=== PATIENT | male | born 1995 | race African-American/Black ===

== ENCOUNTER 2024-05-17 04:00 | Emergency (ER) | payer MEDICAID, OTHER ==
[~2024-05-17] VITALS: Ht 193 cm; Wt 150.0 kg
--- NOTE | 2024-05-17 04:44 | ED.PDOC ---
Eye-HPI HPI Comments This is a 28-year-old male patient presents to the ED with bilateral eye r edness. Patient states symptoms started around 1 day ago, has been taking [id number] eyedrops with little relief. He reports yellowish discharge with crusting in the morning. He notes no eye pain but does complain of severe eye itchiness. Denies fevers, chills, changes in vision, nausea or vomiting. Denies any trauma or known foreign body. Chief Complaint: Eye Problem Time Seen by MD: 04:11 Reviewed Notes: Nurses Notes, Aircraft Life Support Fitter Notes, Medications, Allergies Allergies: Uncoded Allergies: SHELLFISH (Allergy, Unknown, 05/17/24) Information Source: Patient Mode of Arrival: Ambulatory Past Medical History PAST MEDICAL HISTORY: Denies Surgical History: Denies all surgeries Family History Family History: Reviewed,noncontributory to illness, No family hx of Cancer, No family hx of DM, No family hx of Heart brannon, No family hx of HTN, No family hx ofKidney brannon, No family hx of Liver brannon, No family hx of Lung brannon, No family hx of Stroke Social History Smoker: Non-Smoker Alcohol: Denies ETOH Use Drugs: Denies Drug Use Constitutional: denies: chills, diaphoresis, fatigue, fever, malaise, sweats, weakness, others EENTM: reports: eye redness; denies: blurred vision, double vision, ear bleeding, ear discharge, ear drainage, ear pain, ear ringing, eye pain, hearing loss, mouth pain, mouth swelling, nasal discharge, nose bleeding, nose congestion, nose pain, photophobia, tearing, throat pain, throat swelling, voice changes, others Respiratory: denies: cough, hemoptysis, orthopnea, SOB at rest, shortness of breath, SOB with excertion, stridor, wheezing, others Cardiovascular: denies: chest pain, dizzy spells, diaphoresis, Dyspnea on exertion, edema, irregular heart beat, left arm pain, lightheadedness, palpitations, PND, syncope, others Gastrointestinal: denies: abdomen distended, abdominal pain, blood streaked bowels, constipated, diarrhea, dysphagia, difficulty swallowing, hematemesis, melena, nausea, poor appetite, poor fluid intake, rectal bleeding, rectal pain, vomiting, others Genitourinary: denies: burning, dysuria, flank pain, frequency, hematuria, incontinence, penile discharge, penile sore, pain, testicle pain, testicle swelling, urgency, others Neurological: denies: dizziness, fainting, headache, left sided numbness, left sided weakness, numbness, paresthesia, pre-existing deficit, right sided numbness, right sided weakness, seizure, speech problems, tingling, tremors, weakness, others Musculoskeletal: denies: back pain, gout, joint pain, joint swelling, muscle pain, muscle stiffness, neck pain, others Integumetry: denies: bruises, change in color, change in hair/nails, dryness, laceration, lesions, lumps, rash, wounds, others Allergic/Immunocompromised: denies: Difficulty Healing, Frequent Infections, Hives, Itching, others Hematologic/Lymphatic: denies: anemia, blood clots, easy bleeding, easy bruising, swollen glands, others Endocrine: denies: excessive hunger, excessive sweating, excessive thirst, excessive urination, flushing, intolerance to cold, intolerance to heat, unexplained weight gain, unexplained weight loss, others Psychiatric: denies: anxiety, bipolar disorder, depression, hopeless, panic disorder, schizophrenia, sleepless, suicidal, others Physical Exam General Appearance: No Apparent Distress, Normal HEENT: Pharynx Normal, TMs Normal, Other (Bilateral conjunctival hyperemia with noted yellow discharge. Vision bilateral 2020. Yellowish drainage noted bilateral.) Neck: Full Range of Motion, Non-Tender, Normal, Normal Inspection Respiratory: Chest Non-Tender, Lungs Clear, No Accessory Muscle Use, No Respiratory Distress, Normal Breath Sounds Cardiovascular: No Edema, No JVD, No Murmur, No Gallop, Normal Peripheral Pulses, Regular Rate/Rhythm Breast Exam: Deferred Gastrointestinal: No Organomegaly, Non Tender, No Pulsatile Mass, Normal Bowel Sounds, Soft Genitalia: Deferred Pelvic: Deferred Rectal: Deferred Extremities: No calf tenderness, Normal capillary refill, Normal inspection, Normal range of motion, Non-tender, No pedal edema Musculoskeletal : Apperance: Normal Neurologic: Alert, 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 Was a procedure done?: No EENT DIFF Eye: Conjunctivitis, Foreign Body-Conjunctiva X-Ray, Labs, Meds, VS Vital Signs Date Time Temp Pulse Resp B/P (MAP) Pulse Ox O2 Delivery O2 Flow Rate FiO2 05/17/24 04:13 97.9 90 16 145/94 (111) 97 X-Ray, Labs, Meds, VS Comment Likely bacterial. This is a. Cjfc-cpp-dizccvt drops start trial of antibiotic drops follow up with his PCP in 2-3 days as necessary. Advised to wash his pillowcase towards end of treatment advised to avoid scratching his eyes. Advised to follow back up in the ER for increasing symptoms, fevers, chills or changes in vision. Patient agrees with discharge plan of care. Time of 1ST Reevaluation: 04:51 Reevaluation 1ST: Unchanged Patient Education/Counseling: Diagnosis, Treatment, Prognosis, Need For Follow Up Family Education/Counseling: No Family Present Departure 1 Departure Time of Disposition: 04:56 Impression: Primary Impression: Acute conjunctivitis, bilateral Qualified Codes: H10.33 - Unspecified acute conjunctivitis, bilateral Disposition: 01 HOME / SELF CARE / HOMELESS Condition: Stable e-Prescriptions Moxifloxacin Hydrochloride (Moxifloxacin HCl) 0.5 % Jessi 1 DROP OP TID for 7 Days, #4 ML Instill 1 drop 3 times a day in both eyes x7 days Prov: YESENIA JADE 05/17/24 Discharged With: Self Critical Care Note Critical Care Time?: No Stability Stability form required: YESENIA Bruno May 17, 2024 04:44
[2024-05-17] MEDS ORDERED: MOXI0.5S3 OP (04:56)
[2024-05-17 04:58] VITALS: BP 135/91; PULSE 97; RESP 19; TEMP 97.9; O2SAT 95
== END 2024-05-17 05:17 | disposition home or self-care (01) ==
LOC: ER 04:00
DX: H10.33 Unspecified acute conjunctivitis, bilateral (principal)

== ENCOUNTER 2024-07-29 11:29 | Inpatient (IN) | payer MEDICAID ==
[~2024-07-29] VITALS: Ht 195.6 cm; Wt 142.5 kg
--- NOTE | 2024-07-29 12:08 | ED.PDOC ---
SOB-HPI HPI Comments 28 y/o M with PMHX of Asthma presents to the ED for CC of shortness of breath. Patient states, that he has been experiencing shortness of breath x2days with associated wheezing. Patient relays, that he has been unable to do daily activities due to continuously being out of breath. Patient comments of using his inhaler at home; provided no relief. Patient denies fever, chills, nasal congestion, or N/V/D. Chief Complaint: Shortness of Breath Time Seen by MD: 12:00 Reviewed notes: Nurses Notes, Medications, Allergies Information Source: Patient Mode of Arrival: Ambulatory Severity: Moderate Timing: Days Duration: Since onset Context: At Rest, With Light Exertion PE Risk Factors: None History of: Asthma Prehospital treatment: None Modifying Factors: Nothing Associated Signs and Symptoms: Wheeze Past Medical History PAST MEDICAL HISTORY: Denies Surgical History: Denies all surgeries Family History Family History: Reviewed,noncontributory to illness, No family hx of Cancer, No family hx of DM, No family hx of Heart brannon, No family hx of HTN, No family hx ofKidney brannon, No family hx of Liver brannon, No family hx of Lung brannon, No family hx of Stroke Social History Smoker: Non-Smoker Alcohol: Denies ETOH Use Drugs: Denies Drug Use Constitutional: denies: chills, diaphoresis, fatigue, fever, malaise, sweats, weakness, others EENTM: denies: blurred vision, double vision, ear bleeding, ear discharge, ear drainage, ear pain, ear ringing, eye pain, eye redness, hearing loss, mouth pain, mouth swelling, nasal discharge, nose bleeding, nose congestion, nose pain, photophobia, tearing, throat pain, throat swelling, voice changes, others Respiratory: reports: shortness of breath; denies: cough, hemoptysis, orthopnea, SOB at rest, SOB with excertion, stridor, wheezing, others Cardiovascular: denies: chest pain, dizzy spells, diaphoresis, Dyspnea on exertion, edema, irregular heart beat, left arm pain, lightheadedness, palpitations, PND, syncope, others Gastrointestinal: denies: abdomen distended, abdominal pain, blood streaked bowels, constipated, diarrhea, dysphagia, difficulty swallowing, hematemesis, melena, nausea, poor appetite, poor fluid intake, rectal bleeding, rectal pain, vomiting, others Genitourinary: denies: burning, dysuria, flank pain, frequency, hematuria, incontinence, penile discharge, penile sore, pain, testicle pain, testicle swelling, urgency, others Neurological: denies: dizziness, fainting, headache, left sided numbness, left sided weakness, numbness, paresthesia, pre-existing deficit, right sided numbness, right sided weakness, seizure, speech problems, tingling, tremors, weakness, others Musculoskeletal: denies: back pain, gout, joint pain, joint swelling, muscle pain, muscle stiffness, neck pain, others Integumetry: denies: bruises, change in color, change in hair/nails, dryness, laceration, lesions, lumps, rash, wounds, others Allergic/Immunocompromised: denies: Difficulty Healing, Frequent Infections, H vineet, Itching, others Hematologic/Lymphatic: denies: anemia, blood clots, easy bleeding, easy bruising, swollen glands, others Endocrine: denies: excessive hunger, excessive sweating, excessive thirst, excessive urination, flushing, intolerance to cold, intolerance to heat, unexplained weight gain, unexplained weight loss, others Psychiatric: denies: anxiety, bipolar disorder, depression, hopeless, panic disorder, schizophrenia, sleepless, suicidal, others All Other Systems: Reviewed and Negative Physical Exam General Appearance: Moderate Distress HEENT: Normal ENT Inspection, Pharynx Normal, TMs Normal Neck: Full Range of Motion, Non-Tender, Normal, Normal Inspection Respiratory: Respiratory Distress, Wheezing Cardiovascular: No Edema, No JVD, No Murmur, No Gallop, Normal Peripheral Pulses, Regular Rate/Rhythm Breast Exam: Deferred Gastrointestinal: No Organomegaly, Non Tender, No Pulsatile Mass, Normal Bowel Sounds, Soft Genitalia: Deferred Pelvic: Deferred Rectal: Deferred Extremities: No calf tenderness, Normal capillary refill, Normal inspection, Normal range of motion, Non-tender, No pedal edema Musculoskeletal : Apperance: Normal Neurologic: Alert, 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 Was a procedure done?: No Differential Dx Differential Diagnosis: Anxiety, Asthma, Bronchitis, CHF, COPD, Pneumonia, URI X-Ray, Labs, Meds, VS Vital Signs Date Time Temp Pulse Resp B/P (MAP) Pulse Ox O2 Delivery O2 Flow Rate FiO2 07/29/24 12:28 18 96 Nasal Cannula* 2 28 07/29/24 12:05 Nasal Cannula* 2 28 07/29/24 11:56 96 07/29/24 11:48 24 96 Nasal Cannula* 2 28 07/29/24 11:48 99.4 110 24 137/97 (110) 91 Current Medications Medications (Trade) Dose Ordered Sig/Virginie Route Start Time Stop Time Status Last Admin Methylprednisolone Sodium Succinate (Solu Medrol) 125 mg ONCE ONCE IV 07/29/24 12:15 07/29/24 12:16 DC 07/29/24 12:21 Albuterol (Ventolin Medneb) 5 mg ONCE ONCE NEB 07/29/24 12:15 07/29/24 12:16 DC 07/29/24 12:28 Ipratropium [place] (Atrovent Medneb) 0.5 mg ONCE ONCE NEB 07/29/24 12:15 07/29/24 12:16 DC 07/29/24 12:28 [place] [id number] Ph: [phone] DIAGNOSTIC IMAGING Diagnostic Imaging Report : [id number] Signed PATIENT: ASHLEY ALANIZ ACCT: [id number] UNIT: [id number] : 1995 LOC: ER ROOM / BED: / AGE / SEX: 28 / M ADM STATUS: REG ER SERVICE 1144 ORDERING PHYSICIAN: JASMYN RANDOLPH MD PROCEDURE(s): CXRP - CHEST PORTABLE REASON: sob ORDER NUMBER(s): [id number], ACCESSION NUMBER(s): [id number] CHEST RADIOGRAPH Indication: sob Technique: Single frontal view of the chest was obtained COMPARISON: None FINDINGS: Lines and Tubes: None Lungs: Clear Pleura: No effusion. No pneumothorax. Cardiomediastinal contours: Unremarkable Bones: Unremarkable IMPRESSION: No acute disease. ATED BY: ALVARO SHAY MD DICTATED DATE/TIME: 07/29/24 1212 SIGNED BY: ALVARO SHAY MD SIGNED DATE/TIME: 07/29/24 1212 CC: Patient alert. Complaining of shortness a breath. History of asthma. Placed on oxygen. Has wheezing. Establish intravenous access. Was given steroid. Was given breathing treatment. Possible pneumonitis. Explained to the patient. Continue cardiac monitoring. Time of 1ST Reevaluation: 12:30 Reevaluation 1ST: Unchanged Patient Education/Counseling: Diagnosis, Treatment Family Education/Counseling: No Family Present Departure 1 Departure Time of Disposition: 12:26 Impression: Primary Impression: Acute respiratory failure Qualified Codes: J96.01 - Acute respiratory failure with hypoxia Additional Impression: Pneumonitis Disposition: ADMITTED INPATIENT Admit to: Med Surg Condition: Guarded Critical Care Note Critical Care Time?: Yes (45 min-critical care time only) Critical care comment: Placed on oxygen Stability Stability form required: No Heart Score Heart Score: Heart Score Response (Comments) Value History N/A 0 EKG N/A 0 Age N/A 0 Risk Factors N/A 0 Troponin N/A 0 Total 0 I personally scribed for JASMYN RANDOLPH MD ([email or web address]) on 07/29/24 at 12:08. Electronically submitted by Jaclyn Blackwood ([email or web address]). I personally scribed for JASMYN RANDOLPH MD ([email or web address]) on 07/29/24 at 12:59. Electronically submitted by Jaclyn Blackwood ([email or web address]). JASMYN RANDOLPH MD Jul 29, 2024 12:08
--- NOTE | 2024-07-29 12:14 | DVH ---
CHEST RADIOGRAPH Indication: sob Technique: Single frontal view of the chest was obtained COMPARISON: None FINDINGS: Lines and Tubes: None Lungs: Clear Pleura: No effusion. No pneumothorax. Cardiomediastinal contours: Unremarkable Bones: Unremarkable IMPRESSION: No acute disease.
[2024-07-29] MEDS: methylPREDNISolone SOD SUCC 125 MG/2 ML VL IV ONE (12:21)
[2024-07-29 12:28] VITALS: PULSE 94; RESP 18; O2SAT 95
[2024-07-29] MEDS: ALBUTEROL SULF 2.5 MG/0.5ML(0.5%) NEB SOLN NEB ONE (12:28)
[2024-07-29] MEDS: IPRATROPIUM BROM 0.5 MG/2.5ML INH SOL NEB ONE (12:28)
[2024-07-29] MEDS ORDERED: ACETAMINOPHEN 325 MG TAB PO PRN (13:00)
[2024-07-29] MEDS ORDERED: HYDROcodone-ACET 5/325MG TAB PO PRN (13:00)
[2024-07-29] MEDS ORDERED: ONDANSETRON HCL 4 MG/2 ML VIAL IV PRN (13:00)
[2024-07-29] MEDS ORDERED: IPRATROPIUM BROM 0.5 MG/2.5ML INH SOL NEB PRN (13:00)
[2024-07-29] MEDS ORDERED: DOCUSATE SOD 100 MG CAP PO PRN (13:00)
[2024-07-29] MEDS ORDERED: ALBUTEROL SULF 2.5 MG/0.5ML(0.5%) NEB SOLN NEB PRN (13:00)
[2024-07-29 13:07] LABS: Basophils # (auto) 0.1 10 ^3/uL (0-0.2); Basophils % (auto) 0.9 % (0.0-2.0); Eosinophils # (auto) 0.7 10 ^3/uL (0-0.8); Eosinophils % (auto) 6.9 % (0.0-7.0); Hematocrit 43.9 % (41.0-53.0); Hemoglobin 14.8 g/dL (13.5-17.5); Lymphocytes # (auto) 2.2 10 ^3/uL (0.4-5.4); Lymphocytes % (auto) 21.3 % (10.0-50.0); Mean Corpuscular Hemoglobin 31.4 pg (28.0-32.0); Mean Corpuscular Hgb Conc. 33.6 g/dL (32.0-36.0); Mean Corpuscular Volume 93.3 fL (80.0-100.0); Monocytes # (auto) 0.7 10 ^3/uL (0-1.3); Monocytes % (auto) 6.5 % (0.0-12.0); Neutrophils # (auto) 6.6 10 ^3/uL (1.6-8.6); Neutrophils % (auto) 64.4 % (37.0-80.0); Platelet Count (auto) 350 10^3/uL (140-450); White Blood Cell 10.2 10^3/uL (4.4-10.8)
[2024-07-29 13:18] LABS: Chloride 104 mmol/L (98-107); Potassium 3.8 mmol/L (3.5-5.1); Sodium 139 mmol/L (136-145)
[2024-07-29 13:19] LABS: Anion Gap 7 (5-15); Carbon Dioxide 28 mmol/L (20-31)
[2024-07-29 13:24] LABS: BUN/Creatinine Ratio 5.7 (10.0-20.0); Glucose 103 mg/dL (74-106)
[2024-07-29 13:25] LABS: Blood Urea Nitrogen 7 mg/dL (9-23)
[2024-07-29] MEDS: methylPREDNISolone SOD SUCC 40 MG/ML VL IV SCH (13:29)
[2024-07-29] MEDS: SODIUM CHLORIDE 0.9% 1,000 ML IV SCH (13:29)
[2024-07-29 13:33] VITALS: PULSE 91; RESP 20; O2SAT 95
--- NOTE | 2024-07-29 14:29 | DVHHP2 ---
History of Present Illness Reason for Visit: Acute respiratory failure History of Present Illness The patient is a 28-year-old male who denies past medical history presented to [facility] ED with complaint of shortness of breaths. Patient reports he has been experiencing shortness of breaths for the past 2 days, a ssociated wheezing, SOB at rest, getting worse today that prompted this visit. Patient was seen and evaluated in the ED, laboratory data shows WBC 10.2, platelets 350, sodium 139, potassium 3.8, BUN 7, creatinine 1.22, GFR 83, glucose 103, blood pressure 137/97, heart rate 96, temperature 99.4 F, O2 saturation 96% on oxygen. Chest x-ray reporting no acute disease. Patient was given breathing treatment, please see medication orders section in the computer. On my assessment, patient denied chest pain, no headache, no dizziness, no diaphoresis, currently on oxygen, no nausea, no vomiting, no fever, no chills. Patient was admitted for further evaluation and medical management. Past Medical History Denies past medical history Past Surgical History Denies all surgeries Family History Reviewed, noncontributory to the management of this case. Past Social History The patient lives at home, denies smoking, alcohol or illicit drugs abuse. Review of Systems Constitutional: No: Fever, Chills, Sweats, Weakness, Malaise, Other Eyes: No: Pain, Vision change, Conjunctivae inflammation, Eyelid inflammation, Other, Redness ENT: No: Ear pain, Ear discharge, Nose pain, Nose discharge, Nose congestion, Mouth pain, Mouth swelling, Throat pain, Throat swelling, Other Respiratory: Shortness of breath, Wheezing, Other (SOB at rest); No: Cough, Dry, SOB with excertion, Hemoptysis, Pleuritic Pain, Sputum, Wheezing Cardiovascular: No: Chest Pain, Palpitations, Orthopnea, Paroxysmal Noc. Dyspnea, Edema, Lt Headedness, Other Gastrointestinal: No: Nausea, Vomiting, Abdominal Pain, Diarrhea, Constipation, Melena, Hematochezia, Other Genitourinary: No Dysuria, No Frequency, No Incontinence, No Hematuria, No Retention, No Other Musculoskeletal: No: other, neck pain, shoulder pain, arm pain, back pain, hand pain, leg pain, foot pain Skin: No: Rash, Lesions, Jaundice, Bruising, Other Neurological: No: Weakness, Numbness, Incoordination, Change in speech, Confusion, Seizures, Other Allergies: Uncoded Allergies: SHELLFISH (Allergy, Unknown, 05/17/24) Medications Current Medications Medications Dose Ordered Sig/Virginie Route Start Time Stop Time Status Last Admin Dose Admin Albuterol 2.5 mg Q4HPRN PRN NEB 07/29/24 13:00 Ipratropium [place] 0.5 mg Q4HPRN PRN NEB 07/29/24 13:00 Methylprednisolone Sodium Succinate 40 mg Q8HR IV 07/29/24 14:00 07/29/24 13:29 40 MG Sodium Chloride 1,000 ml @ 60 mls/hr [id number] IV 07/29/24 13:00 07/29/24 13:29 60 MLS/HR Acetaminophen/ Hydrocodone Bitart 1 tab Q4HP PRN PO 07/29/24 13:00 Ondansetron HCl 4 mg Q4HP PRN IV 07/29/24 13:00 Docusate Sodium 100 mg BIDPRN PRN PO 07/29/24 13:00 Acetaminophen 650 mg Q6HP PRN PO 07/29/24 13:00 Exam Vital Signs Vital Signs Date Time Temp Pulse Resp B/P (MAP) Pulse Ox O2 Delivery O2 Flow Rate FiO2 07/29/24 14:00 83 18 150/97 (114) 94 07/29/24 13:33 99.4 99.4 07/29/24 13:33 Room Air* 0 21 General Appearance: Alert, Oriented X3, Cooperative, No acute distress HEENT: Atraumatic, PERRLA, EOMI, Mucous membr. moist/pink Respiratory: Normal air movement, Other (Wheezing) Cardiovascular: Regular rate, Normal S1, Normal S2 Abdominal: Normal bowel sounds, Soft, No tenderness, No hepatospenomegaly, No masses Extremities: No clubbing, No cyanosis, No edema, Normal pulses, No tenderness/swelling Skin: No rashes, No breakdown, No significant lesion Neuro: Normal gait, Normal speech, Strength at 5/5 X4 ext, Normal tone, Sensation intact, Cranial nerves 3-12 NL, Reflexes 2+ Psych/Mental Status: Mental status NL, Mood NL Labs/Xrays Labs Test 07/29/24 12:56 Range/Units White Blood Count 10.2 4.4-10.8 10^3/uL Red Blood Count 4.70 4.5-5.90 10^6/uL Hemoglobin 14.8 13.5-17.5 g/dL Hematocrit 43.9 41.0-53.0 % Mean Corpuscular Volume 93.3 80.0-100.0 fL Mean Corpuscular Hemoglobin 31.4 28.0-32.0 pg Mean Corpuscular Hemoglobin Concent 33.6 32.0-36.0 g/dL Red Cell Distribution Width 13.0 11.8-14.3 % Platelet Count 350 140-450 10^3/uL Mean Platelet Volume 7.7 6.9-10.8 fL Neutrophils (%) (Auto) 64.4 37.0-80.0 % Lymphocytes (%) (Auto) 21.3 10.0-50.0 % Monocytes (%) (Auto) 6.5 0.0-12.0 % Eosinophils (%) (Auto) 6.9 0.0-7.0 % Basophils (%) (Auto) 0.9 0.0-2.0 % Neutrophils # (Auto) 6.6 1.6-8.6 10 ^3/uL Lymphocytes # (Auto) 2.2 0.4-5.4 10 ^3/uL Monocytes # (Auto) 0.7 0-1.3 10 ^3/uL Eosinophils # (Auto) 0.7 0-0.8 10 ^3/uL Basophils # (Auto) 0.1 0-0.2 10 ^3/uL Nucleated Red Blood Cells 0.0 % Sodium Level 139 136-145 mmol/L Potassium Level 3.8 3.5-5.1 mmol/L Chloride Level 104 98-107 mmol/L Carbon Dioxide Level 28 20-31 mmol/L Anion Gap 7 5-15 Blood Urea Nitrogen 7 L 9-23 mg/dL Creatinine 1.22 0.700-1.30 mg/dL Glomerular Filtration Rate Calc 83 >90 mL/min BUN/Creatinine Ratio 5.7 L 10.0-20.0 Serum Glucose 103 74-106 mg/dL Calcium Level 10.0 8.7-10.4 mg/dL PATIENT: ASHLEY ALANIZ ACCT: [id number] UNIT: [id number] : 1995 LOC: ER ROOM / BED: / AGE / SEX: 28 / M ADM STATUS: REG ER SERVICE 1144 ORDERING PHYSICIAN: JASMYN RANDOLPH MD PROCEDURE(s): CXRP - CHEST PORTABLE REASON: sob ORDER NUMBER(s): [id number], ACCESSION NUMBER(s): [id number] CHEST RADIOGRAPH Indication: sob Technique: Single frontal view of the chest was obtained COMPARISON: None FINDINGS: Lines and Tubes: None Lungs: Clear Pleura: No effusion. No pneumothorax. Cardiomediastinal contours: Unremarkable Bones: Unremarkable IMPRESSION: No acute disease. Assessment/Plan Assessment/Plan Acute respiratory failure Acute respiratory failure with hypoxia Plan 1. Admit to telemetry unit 2. Breathing treatment 3. Pain control management 4. Management of fluids and electrolytes 5. Consultation for pulmonology 6. Diagnostic tests chest x-ray 7. DVT prophylaxis-on SCDs 8. Repeat labs CBC, CMP in a.m. 9. Continue with current medical management 10. Treatment plan discussed with patient and RN. Patient verbalized understanding. Plan discussed with: Patient, Other (RN) My Orders Orders - ALEXIA CARTER DNP Procedure Category Date Status Time Albuterol Medneb PHA 07/29/24 In Process (Ventolin Medneb) 13:00 Ipratropium Medneb PHA 07/29/24 In Process (Atrovent Medneb) 13:00 Methylprednisolone PHA 07/29/24 In Process Sod Succ (Solu Medrol 14:00 Allergies KHARI 07/29/24 In Process 12:57 Code Status CODE 07/29/24 Transmitted 12:57 2 Gm Sodium Diet DIET 07/29/24 Transmitted Lunch Sodium Chloride 0.9% PHA 07/29/24 In Process 13:00 Oxygen Per Hour RT 07/29/24 Transmitted 12:57 Hydrocodone-Acet PHA 07/29/24 In Process 5/325mg Tab ([place] 13:00 Ondansetron Hcl PHA 07/29/24 In Process (Zofran) 13:00 Docusate Sodium PHA 07/29/24 In Process Capsule (Colace 13:00 Complete Blood Count LAB 07/30/24 Verified 04:00 Comprehensive LAB 07/30/24 Verified Metabolic Panel 04:00 Condition: Serious KHARI 07/29/24 In Process 12:57 Acetaminophen Tablet PHA 07/29/24 In Process (Tylenol Tablet) 13:00 Bedrest With Bathroom KHARI 07/29/24 In Process Privileg 12:57 Sequential KHARI 07/29/24 In Process Compression Device *Consult CONS 07/29/24 Transmitted / 13:01 Problem List: (1) Acute respiratory failure (2) Acute respiratory failure with hypoxia Date of Service: Jul 29, 2024 Billing Provider: ALEXIA CARTER DNP Common Visit Codes: [id number]-[id number] INP/OBS CARE (HIGH) ALEXIA CARTER DNP Jul 29, 2024 14:29
[2024-07-29] MEDS ORDERED: NITROGLYCERIN 0.4 MG SL TAB SL PRN (14:30)
[2024-07-29] MEDS ORDERED: MORPHINE SULFATE INJ 2 MG/ml SYRG IV PRN (14:30)
[2024-07-29 17:50] VITALS: O2SAT 96
[2024-07-29 19:30] VITALS: BP 131/78; TEMP 98.2
[2024-07-29 19:44] VITALS: PULSE 98; RESP 17; O2SAT 92
[2024-07-29 19:50] VITALS: O2SAT 96
--- NOTE | 2024-07-29 21:43 | DVHINCON2 ---
Date of service: Jul 29, 2024 Referring Physician Bryon Hernandez NP Reason for Consultation Acute hypoxic respiratory failure History of Present Illness A 28-year-old man who denies past medical history, presents to ED today with complaint of shortness of breath. Patient reports shortness of breath ongoing for the past 2 days, associated wheezing, SOB at rest, getting worse today that prompted this visit. Workup in ED shows WBC 10.2, platelets 350, sodium 139, potassium 3.8, BUN 7, creatinine 1.22, GFR 83, and glucose 103. O2 saturation was 96% on oxygen. Chest x-ray showed no acute disease. Patient was admitted for further care and pulmonary consultation is requested for evaluation and management of acute hypoxic respiratory failure. Review of Systems: 14-point review of systems negative unless otherwise noted above. Past Medical History: Denies Past Surgical History: Denies Medications: Reviewed. Allergies: Shellfish. Family History: No family history of premature CAD. No family history of lung disorders. Social History: Nonsmoker. No alcohol or illicit drug use. Allergies: Uncoded Allergies: SHELLFISH (Allergy, Unknown, 05/17/24) Current Medications Current Medications Medications (Trade) Dose Ordered Sig/Virginie Route PRN Reason Start Time Stop Time Status Last Admin Albuterol (Ventolin Medneb) 2.5 mg Q4HPRN PRN NEB SHORTNESS OF BREATH 07/29/24 13:00 07/29/24 20:03 DC Ipratropium [place] (Atrovent Medneb) 0.5 mg Q4HPRN PRN NEB SHORTNESS OF BREATH 07/29/24 13:00 07/29/24 20:03 DC Methylprednisolone Sodium Succinate (Solu Medrol) 40 mg Q8HR IV 07/29/24 14:00 07/29/24 20:03 DC 07/29/24 13:29 Sodium Chloride 1,000 ml @ 60 mls/hr [id number] IV 07/29/24 13:00 07/29/24 20:03 DC 07/29/24 13:29 Acetaminophen/ Hydrocodone Bitart ([place] 5/325MG Tab) 1 tab Q4HP PRN PO MODERATE PAIN (4-6 PAIN SCALE) 07/29/24 13:00 07/29/24 20:03 DC Ondansetron HCl (Zofran) 4 mg Q4HP PRN IV NAUSEA / VOMITING 07/29/24 13:00 07/29/24 20:03 DC Docusate Sodium (Colace Capsule) 100 mg BIDPRN PRN PO FOR CONSTIPATION 07/29/24 13:00 07/29/24 20:03 DC Acetaminophen (Tylenol Tablet) 650 mg Q6HP PRN PO PAIN SCALE 1-3 OR TEMP>100.4 07/29/24 13:00 07/29/24 20:03 DC Nitroglycerin (Ntrostat Sublingual) 0.4 mg Q5MINP PRN SL FOR CHEST PAIN 07/29/24 14:30 07/29/24 20:03 DC Morphine Sulfate 2 mg Q30M PRN IV FOR CHEST PAIN 07/29/24 14:30 07/29/24 20:03 DC Vital Signs Vital Signs Date Time Temp Pulse Resp B/P (MAP) Pulse Ox O2 Delivery O2 Flow Rate FiO2 07/29/24 19:44 98 17 92 Room Air* 0 21 07/29/24 19:30 98.2 131/78 (95) 98.2 Physical Exam Gen.: Patient lying in bed in no apparent distress. Breathing on room air. Head: Normocephalic, atraumatic. Eyes: EOMI/PERRLA. Ears: Normal hearing. Normal anatomy. Neck/trachea: Trachea midline, supple. Nose: Normal external anatomy. Mouth: Moist mucous membranes. Chest: Decreased air entry bilaterally. No wheezing or rhonchi. Cardiovascular: Positive S1, positive S2. Regular rate and rhythm. Abdomen: Positive bowel sounds in all 4 quadrants. Soft, non-tender, non- distended. : Deferred. Rectal: Deferred. Skin: Warm, dry. Intact. Extremities: 2+ radial pulses bilaterally. No lower extremity edema. Neuro: Awake, alert, oriented x3. No gross motor or sensory deficits. Cranial nerves II through XII intact. Gait not assessed. Labs/Diagnostic Data Labs Test 07/29/24 12:56 Range/Units White Blood Count 10.2 4.4-10.8 10^3/uL Red Blood Count 4.70 4.5-5.90 10^6/uL Hemoglobin 14.8 13.5-17.5 g/dL Hematocrit 43.9 41.0-53.0 % Mean Corpuscular Volume 93.3 80.0-100.0 fL Mean Corpuscular Hemoglobin 31.4 28.0-32.0 pg Mean Corpuscular Hemoglobin Concent 33.6 32.0-36.0 g/dL Red Cell Distribution Width 13.0 11.8-14.3 % Platelet Count 350 140-450 10^3/uL Mean Platelet Volume 7.7 6.9-10.8 fL Neutrophils (%) (Auto) 64.4 37.0-80.0 % Lymphocytes (%) (Auto) 21.3 10.0-50.0 % Monocytes (%) (Auto) 6.5 0.0-12.0 % Eosinophils (%) (Auto) 6.9 0.0-7.0 % Basophils (%) (Auto) 0.9 0.0-2.0 % Neutrophils # (Auto) 6.6 1.6-8.6 10 ^3/uL Lymphocytes # (Auto) 2.2 0.4-5.4 10 ^3/uL Monocytes # (Auto) 0.7 0-1.3 10 ^3/uL Eosinophils # (Auto) 0.7 0-0.8 10 ^3/uL Basophils # (Auto) 0.1 0-0.2 10 ^3/uL Nucleated Red Blood Cells 0.0 % Sodium Level 139 136-145 mmol/L Potassium Level 3.8 3.5-5.1 mmol/L Chloride Level 104 98-107 mmol/L Carbon Dioxide Level 28 20-31 mmol/L Anion Gap 7 5-15 Blood Urea Nitrogen 7 L 9-23 mg/dL Creatinine 1.22 0.700-1.30 mg/dL Glomerular Filtration Rate Calc 83 >90 mL/min BUN/Creatinine Ratio 5.7 L 10.0-20.0 Serum Glucose 103 74-106 mg/dL Calcium Level 10.0 8.7-10.4 mg/dL Assessment Impression: Acute hypoxic respiratory failure Asthma exacerbation Obesity BMI 37.3 Eosinophilic Asthma, 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 Start bronchodilators. IV steroids EOS 700, likely eosinophilic asthma. Monitor renal function. Monitor electrolytes. Supplement as necessary. Monitor ins and outs. DVT prophylaxis. Recommend follow up in 2-3 weeks. Of note, I was informed after seeing patient that he wished to leave AMA with full knowledge of risks and benefits. Prognosis: Poor given patient's multiple co-morbidities. Rest of plan per hospitalist and other consultants. Thank you, WELLINGTON Hernandez, for allowing me to participate in this patient's care. Further recommendations will depend on the patient's clinical course. Please do not hesitate to contact me if you have any questions or concerns. This medical document was created using an electronic medical record system with [employer] dictation system. Although these documentations are being carefully reviewed, there may still be some phonetic and typographical changes. The errors are purely typographical, due to imperfection on the software program, and do not reflect any compromise in the patient's medical care. Plan discussed with: Patient, Other (RN/WELLINGTON Hernandez) LEVY OCONNOR MD Jul 29, 2024 21:43
--- NOTE | 2024-08-01 10:23 | ECG ---
[facility] Test Date: 2024-07-29 Test Time: 11:56:22 Pat Name: ASHLEY ALANIZ Department: ER Room: [address] [place] [address] Gender: M Shirt Bander: PRINCESS : 1995 Requested By: JASMYN RANDOLPH Order Number: [id number] Reading MD: Marek Gimenez Measurements Intervals [place] Rate: 96 P: 11 VA: 148 QRS: 72 QRSD: 102 T: 44 QT: 336 QTc: 425 Interpretive Statements Sinus rhythm ST elev, probable normal early repol pattern Baseline wander in lead(s) V1 Electronically Signed On 08-02-2024 13:09:16 PST by Marek Gimenez Please click the below link to view image of tracing.
== END 2024-07-29 19:51 | disposition left against medical advice (07) | DRG 133 ==
LOC: ER 11:29 → TELE 14:28
PROVIDERS: ADMIT Nurse Practitioner Family; ATTEND Nurse Practitioner Family
DX: J96.01 Acute respiratory failure with hypoxia (principal); J45.901 Unspecified asthma with (acute) exacerbation; J82.83 Eosinophilic asthma; Z53.29 Procedure and treatment not carried out because of patient's decision for other reasons; E66.9 Obesity, unspecified; J98.4 Other disorders of lung; Z91.013 Allergy to seafood; Z68.37 Body mass index [BMI] 37.0-37.9, adult; Z79.899 Other long term (current) drug therapy
CPT/HCPCS: 36415; 71045; 80048; 85025; 93005; 94640; 96361; 96374; 96375; 99291; G0378

== ENCOUNTER 2025-02-06 09:37 | Inpatient (IN) | payer MEDICAID, OTHER ==
[~2025-02-06] VITALS: Ht 195.6 cm; Wt 131.7 kg
--- NOTE | 2025-02-06 10:18 | ED.PDOC ---
HPI Comments 29 y/o M, with PMHx of asthma presents to the ED for CC of chest pain. Patient states, he has been experiencing substernal chest pain that radiates to his back onset, Monday (02/03/25). Patient reports, pain to worsen with inspiration. Patient denies palpitations, nausea, vomiting, abdominal pain, or headache. No other symptoms or modifying factors present at this time. Chief Complaint: Chest Pain Time Seen by MD: 10:00 Primary Care Provider: NONE Reviewed Notes: Nurses Notes, Medications, Allergies Allergies: Uncoded Allergies: SHELLFISH (Allergy, Unknown, 05/17/24) Information Source: Patient Mode of Arrival: Ambulatory Severity: Moderate Timing: Days Duration: Since onset Prehospital treatment: None Location: Substernal Radiation: Back Onset: At Rest Cardiac Risk Factors: None PE Risk Factors: None History of: None Modifying Factors: Nothing Associated Signs and Symptoms: None Past Medical History PAST MEDICAL HISTORY: Asthma Surgical History: Denies all surgeries Family History Family History: Reviewed,noncontributory to illness, No family hx of Cancer, No family hx of DM, No family hx of Heart brannon, No family hx of HTN, No family hx ofKidney brannon, No family hx of Liver brannon, No family hx of Lung brannon, No family hx of Stroke Social History Smoker: Non-Smoker Alcohol: Denies ETOH Use Drugs: Denies Drug Use Lives In: Home Constitutional: denies: chills, diaphoresis, fatigue, fever, malaise, sweats, weakness, others EENTM: denies: blurred vision, double vision, ear bleeding, ear discharge, ear drainage, ear pain, ear ringing, eye pain, eye redness, hearing loss, mouth pain, mouth swelling, nasal discharge, nose bleeding, nose congestion, nose pain, photophobia, tearing, throat pain, throat swelling, voice changes, others Respiratory: denies: cough, hemoptysis, orthopnea, SOB at rest, shortness of breath, SOB with excertion, stridor, wheezing, others Cardiovascular: reports: chest pain; denies: dizzy spells, diaphoresis, Dyspnea on exertion, edema, irregular heart beat, left arm pain, lightheadedness, palpitations, PND, syncope, others Gastrointestinal: denies: abdomen distended, abdominal pain, blood streaked bowels, constipated, diarrhea, dysphagia, difficulty swallowing, hematemesis, melena, nausea, poor appetite, poor fluid intake, rectal bleeding, rectal pain, vomiting, others Genitourinary: denies: burning, dysuria, flank pain, frequency, hematuria, incontinence, penile discharge, penile sore, pain, testicle pain, testicle swelling, urgency, others Neurological: denies: dizziness, fainting, headache, left sided numbness, left sided weakness, numbness, paresthesia, pre-existing deficit, right sided nu mbness, right sided weakness, seizure, speech problems, tingling, tremors, weakness, others Musculoskeletal: denies: back pain, gout, joint pain, joint swelling, muscle pain, muscle stiffness, neck pain, others Integumetry: denies: bruises, change in color, change in hair/nails, dryness, laceration, lesions, lumps, rash, wounds, others Allergic/Immunocompromised: denies: Difficulty Healing, Frequent Infections, Hives, Itching, others Hematologic/Lymphatic: denies: anemia, blood clots, easy bleeding, easy bruising, swollen glands, others Endocrine: denies: excessive hunger, excessive sweating, excessive thirst, excessive urination, flushing, intolerance to cold, intolerance to heat, unexplained weight gain, unexplained weight loss, others Psychiatric: denies: anxiety, bipolar disorder, depression, hopeless, panic disorder, schizophrenia, sleepless, suicidal, others All Other Systems: Reviewed and Negative Physical Exam General Appearance: Moderate Distress HEENT: Normal ENT Inspection, Pharynx Normal, TMs Normal Neck: Full Range of Motion, Non-Tender, Normal, Normal Inspection Respiratory: Chest Non-Tender, Lungs Clear, No Accessory Muscle Use, No Respiratory Distress, Normal Breath Sounds Cardiovascular: No Edema, No JVD, No Murmur, No Gallop, Normal Peripheral Pulses, Regular Rate/Rhythm Breast Exam: Deferred Gastrointestinal: No Organomegaly, Non Tender, No Pulsatile Mass, Normal Bowel Sounds, Soft Genitalia: Deferred Pelvic: Deferred Rectal: Deferred Extremities: No calf tenderness, Normal capillary refill, Normal inspection, Normal range of motion, Non-tender, No pedal edema Musculoskeletal : Apperance: Normal Neurologic: Alert, matrix inspector II-XII nml as Tested, No Motor Deficits, Normal Affect, Normal Mood, No Sensory Deficits Cerebellar Function: Normal Reflexes: Normal Skin: Dry, Normal Color, Warm Peripheral Pulses: 3+ Radial (R), 3+ Radial (L) Lymphatic: No Adenopathy Was a procedure done? Was a procedure done?: No CP Differential Dx Differential Diagnosis: A-fib, A-Flutter, Angina, Anxiety / Panic Attack, Atrial Dysrhythmia, Electrolyte Disorder Differential Diagnosis: Angina, Chest Wall Pain, Costochondritis, Esophageal reflux/spasm, Gastritis, Pericarditis X-Ray, Labs, Meds, VS Vital Signs Date Time Temp Pulse Resp B/P (MAP) Pulse Ox O2 Delivery O2 Flow Rate FiO2 02/06/25 09:52 76 02/06/25 09:44 97.8 91 18 131/97 96 97.8 Lab Test 02/06/25 10:11 Range/Units White Blood Count 8.9 4.4-10.8 10^3/uL Red Blood Count 4.76 4.5-5.90 10^6/uL Hemoglobin 15.4 13.5-17.5 g/dL Hematocrit 45.2 41.0-53.0 % Mean Corpuscular Volume 94.8 80.0-100.0 fL Mean Corpuscular Hemoglobin 32.3 H 28.0-32.0 pg Mean Corpuscular Hemoglobin Concent 34.0 32.0-36.0 g/dL Red Cell Distribution Width 13.4 11.8-14.3 % Platelet Count 350 140-450 10^3/uL Mean Platelet Volume 7.5 6.9-10.8 fL Neutrophils (%) (Auto) 56.5 37.0-80.0 % Lymphocytes (%) (Auto) 33.7 10.0-50.0 % Monocytes (%) (Auto) 4.8 0.0-12.0 % Eosinophils (%) (Auto) 4.1 0.0-7.0 % Basophils (%) (Auto) 0.9 0.0-2.0 % Neutrophils # (Auto) 5.0 1.6-8.6 10 ^3/uL Lymphocytes # (Auto) 3.0 0.4-5.4 10 ^3/uL Monocytes # (Auto) 0.4 0-1.3 10 ^3/uL Eosinophils # (Auto) 0.4 0-0.8 10 ^3/uL Basophils # (Auto) 0.1 0-0.2 10 ^3/uL Nucleated Red Blood Cells 0.1 % Sodium Level 139 136-145 mmol/L Potassium Level 3.7 3.5-5.1 mmol/L Chloride Level 103 98-107 mmol/L Carbon Dioxide Level 27 20-31 mmol/L Anion Gap 9 5-15 Blood Urea Nitrogen 11 9-23 mg/dL Creatinine 1.27 0.700-1.30 mg/dL Glomerular Filtration Rate Calc 79 >90 mL/min BUN/Creatinine Ratio 8.7 L 10.0-20.0 Serum Glucose 89 74-106 mg/dL Calcium Level 9.8 8.7-10.4 mg/dL Troponin I High Sensitivity 5 </=54 ng/L Patient alert. Complaining of chest pain. Vitals stable. Answering questions. WBC within normal limits. Hemoglobin within normal limits. Cardiac marker within normal limits. Continues to have chest pain. Echocardiogram. Was given aspirin. Was given nitro. EKG does show diffuse leads possible early repolarization versus pericarditis. Explained to the patient. Continue monitoring. Time of 1ST Reevaluation: 10:30 Reevaluation 1ST: Unchanged Patient Education/Counseling: Diagnosis, Treatment Family Education/Counseling: No Family Present SEPSIS Sepsis Screen Date sepsis recognized/suspect: Feb 06, 2025 Time Sepsis recognized/suspect: 945 Recent Procedure: No On Antibiotic Therapy: No Respiratory Rate >20: No Heart Rate >90: Yes Temp<36 C (96.8 F) or >38.3 C: No SBP <90 or MAP <65 mmHG: No New Acute Mental Status Change: No Is the patient on CPAP, BIPAP,: No Physician Orders Electrocardigram (02/06/25 09:58) Electrocardigram (02/06/25 10:58) Drug Screen (02/06/25 10:01) Vital Signs Date Time Temp Pulse Resp B/P (MAP) Pulse Ox O2 Delivery O2 Flow Rate FiO2 02/06/25 09:52 76 02/06/25 09:44 97.8 91 18 131/97 96 97.8 Laboratory Tests Test 02/06/25 10:11 White Blood Count 8.9 10^3/uL (4.4-10.8) Departure 1 Departure Time of Disposition: :25 Impression: Primary Impression: Chest pain of unknown etiology Disposition: ADMITTED INPATIENT Admit to: Med Surg Condition: Guarded Critical Care Note Critical Care Time?: No Stability Stability form required: No Heart Score Heart Score: Heart Score Response (Comments) Value History N/A 0 EKG N/A 0 Age N/A 0 Risk Factors N/A 0 Troponin N/A 0 Total 0 I personally scribed for JASMYN RANDOLPH MD ([email or web address]) on 02/06/25 at 10:18. Electronically submitted by Jaclyn Blackwood ([email or web address]). JASMYN RANDOLPH MD Feb 06, 2025 10:18
[2025-02-06 10:33] LABS: Hematocrit 45.2 % (41.0-53.0); Hemoglobin 15.4 g/dL (13.5-17.5); Mean Corpuscular Hemoglobin 32.3 pg (28.0-32.0); Mean Corpuscular Volume 94.8 fL (80.0-100.0); Nucleated Red Blood Cells % 0.1 %
[2025-02-06 10:47] LABS: Chloride 103 mmol/L (98-107); Potassium 3.7 mmol/L (3.5-5.1); Sodium 139 mmol/L (136-145)
[2025-02-06 10:48] LABS: Anion Gap 9 (5-15); Calcium 9.8 mg/dL (8.7-10.4); Carbon Dioxide 27 mmol/L (20-31)
[2025-02-06 10:53] LABS: BUN/Creatinine Ratio 8.7 (10.0-20.0); Blood Urea Nitrogen 11 mg/dL (9-23); Glucose 89 mg/dL (74-106)
[2025-02-06] MEDS: NITROGLYCERIN 0.4 MG SL TAB SL ONE (14:04)
--- NOTE | 2025-02-06 14:28 | DVHHP2 ---
History of Present Illness Reason for Visit: Chest pain History of Present Illness 29-year-old male with past medical history of asthma and no prior surgical history presents with chest pain radiating to his back since Monday. He describes the pain as constant, severe, and spasm-like, without aggravating or relieving factors. He reports difficulty taking a deep breath but denies any previous similar symptoms. He has never used an inhaler for his asthma. In the ED, CBC and BMP were unremarkable, and troponin was negative. He was given nitroglycerin and aspirin will admit for further workup echo was ordered in ed rule asthma vs cards vs pe Past Medical History See HPI above Past Surgical History See HPI above Family History Reviewed, non-contributory to the management of this case. Past Social History Patient does drink occasionally last drink was Monday denies drug or alcohol use Review of Systems Constitutional: No: Fever, Chills, Sweats, Weakness, Malaise, Other Eyes: No: Pain, Vision change, Conjunctivae inflammation, Eyelid inflammation, Other, Redness ENT: No: Ear pain, Ear discharge, Nose pain, Nose discharge, Nose congestion, Mouth pain, Mouth swelling, Throat pain, Throat swelling, Other Respiratory: Shortness of breath; No: Cough, Dry, SOB with excertion, Wheezing, Hemoptysis, Pleuritic Pain, Sputum, Wheezing, Other Cardiovascular: Chest Pain; No: Palpitations, Orthopnea, Paroxysmal Noc. Dyspnea, Edema, Lt Headedness, Other Gastrointestinal: No: Nausea, Vomiting, Abdominal Pain, Diarrhea, Constipation, Melena, Hematochezia, Other Genitourinary: No Dysuria, No Frequency, No Incontinence, No Hematuria, No Retention, No Other Musculoskeletal: No: other, neck pain, shoulder pain, arm pain, back pain, hand pain, leg pain, foot pain Skin: No: Rash, Lesions, Jaundice, Bruising, Other Neurological: No: Weakness, Numbness, Incoordination, Change in speech, Confusion, Seizures, Other Allergies: Uncoded Allergies: SHELLFISH (Allergy, Unknown, 05/17/24) Exam Vital Signs Vital Signs Date Time Temp Pulse Resp B/P (MAP) Pulse Ox O2 Delivery O2 Flow Rate FiO2 02/06/25 14:24 83 17 131/86 (101) 100 02/06/25 09:44 97.8 97.8 General Appearance: Alert, Oriented X3, Cooperative, No acute distress HEENT: Atraumatic, PERRLA, EOMI, Mucous membr. moist/pink Respiratory: Normal air movement, Other (Diminished lung sounds throughout) Cardiovascular: Regular rate, Normal S1, Normal S2, No murmurs, Gallops, Rubs Abdominal: Normal bowel sounds, Soft, No tenderness, No hepatospenomegaly, No masses Extremities: No clubbing, No cyanosis, No edema, Normal pulses, No tenderness/swelling Skin: No rashes, No breakdown, No significant lesion Neuro: Normal gait, Normal speech, Strength at 5/5 X4 ext, Normal tone, Sensation intact, Cranial nerves 3-12 NL Psych/Mental Status: Mental status NL, Mood NL Labs/Xrays I reviewed labs, imaging CT scan abdomen pelvis, EKG and all diagnostic studies on this patient from ED records and the medical chart Labs Test 02/06/25 10:11 Range/Units White Blood Count 8.9 4.4-10.8 10^3/uL Red Blood Count 4.76 4.5-5.90 10^6/uL Hemoglobin 15.4 13.5-17.5 g/dL Hematocrit 45.2 41.0-53.0 % Mean Corpuscular Volume 94.8 80.0-100.0 fL Mean Corpuscular Hemoglobin 32.3 H 28.0-32.0 pg Mean Corpuscular Hemoglobin Concent 34.0 32.0-36.0 g/dL Red Cell Distribution Width 13.4 11.8-14.3 % Platelet Count 350 140-450 10^3/uL Mean Platelet Volume 7.5 6.9-10.8 fL Neutrophils (%) (Auto) 56.5 37.0-80.0 % Lymphocytes (%) (Auto) 33.7 10.0-50.0 % Monocytes (%) (Auto) 4.8 0.0-12.0 % Eosinophils (%) (Auto) 4.1 0.0-7.0 % Basophils (%) (Auto) 0.9 0.0-2.0 % Neutrophils # (Auto) 5.0 1.6-8.6 10 ^3/uL Lymphocytes # (Auto) 3.0 0.4-5.4 10 ^3/uL Monocytes # (Auto) 0.4 0-1.3 10 ^3/uL Eosinophils # (Auto) 0.4 0-0.8 10 ^3/uL Basophils # (Auto) 0.1 0-0.2 10 ^3/uL Nucleated Red Blood Cells 0.1 % Sodium Level 139 136-145 mmol/L Potassium Level 3.7 3.5-5.1 mmol/L Chloride Level 103 98-107 mmol/L Carbon Dioxide Level 27 20-31 mmol/L Anion Gap 9 5-15 Blood Urea Nitrogen 11 9-23 mg/dL Creatinine 1.27 0.700-1.30 mg/dL Glomerular Filtration Rate Calc 79 >90 mL/min BUN/Creatinine Ratio 8.7 L 10.0-20.0 Serum Glucose 89 74-106 mg/dL Calcium Level 9.8 8.7-10.4 mg/dL Troponin I High Sensitivity 5 </=54 ng/L SEPSIS Sepsis Screen Date sepsis recognized/suspect: Feb 06, 2025 Time Sepsis recognized/suspect: 945 Recent Procedure: No On Antibiotic Therapy: No Respiratory Rate >20: No Heart Rate >90: Yes Temp<36 C (96.8 F) or >38.3 C: No SBP <90 or MAP <65 mmHG: No New Acute Mental Status Change: No Is the patient on CPAP, BIPAP,: No Physician Orders Electrocardigram (02/06/25 09:58) Electrocardigram (02/06/25 10:58) Drug Screen (02/06/25 10:01) Echo 2d Mode Cardiac Dop (02/06/25 11:23) Admit (02/06/25 14:24) Allergies (02/06/25 14:24) Code Status (02/06/25 14:24) Temazepam (Restoril) (02/06/25 14:30) Ondansetron Hcl (Zofran) (02/06/25 14:30) Docusate Sodium Capsule (Colace Capsule) (02/06/25 14:30) Complete Blood Count (02/07/25 04:00) Comprehensive Metabolic Panel (02/07/25 04:00) Condition: Stable (02/06/25 14:24) BRP (02/06/25 14:24) Morphine Sulfate Injection (02/06/25 14:30) Sequential Compression Device (02/06/25 ) Nitroglycerin Sublingual (Ntrostat Subli (02/06/25 14:30) Stat Ekg For Chest Pain (02/06/25 14:24) Notify Of Changes From Base (02/06/25 14:24) Asphalt Engineer For 24 Hours (02/06/25 14:24) Emergency Dysrhythmia Protocol (02/06/25 14:24) Rhythm Strips Once Every Shift (02/06/25 14:24) Oxygen By Nasal Cannula (02/06/25 14:24) D-Dimer (02/06/25 14:24) Chest Xray 1 View (02/06/25 14:24) B-Type Natriuretic Peptide (02/06/25 14:24) Prothrombin Time W/ Inr (02/06/25 14:24) Albuterol Medneb (Ventolin Medneb) (02/06/25 14:30) Ipratropium Medneb (Atrovent Medneb) (02/06/25 14:30) Cont Med Neb Intial Tx (02/06/25 14:24) Prednisone Tablet (02/06/25 14:30) Prednisone Tablet (02/07/25 10:00) Vital Signs Date Time Temp Pulse Resp B/P (MAP) Pulse Ox O2 Delivery O2 Flow Rate FiO2 02/06/25 14:24 83 17 131/86 (101) 100 02/06/25 14:04 132/96 02/06/25 09:52 76 02/06/25 09:44 97.8 91 18 131/97 96 97.8 Laboratory Tests Test 02/06/25 10:11 White Blood Count 8.9 10^3/uL (4.4-10.8) Medications Medications Dose Ordered Sig/Virginie Route Start Time Stop Time Status Last Admin Dose Admin Aspirin 325 mg ONCE ONCE PO 02/06/25 11:30 02/06/25 11:31 DC 02/06/25 14:02 325 MG Nitroglycerin 0.4 mg ONCE ONCE SL 02/06/25 11:30 02/06/25 11:31 DC 02/06/25 14:04 0.4 MG Assessment/Plan Assessment/Plan 29-year-old male with Chest pain rule out asthma exacerbation, pulmonary embolism, and acute coronary syndrome. acute Chest Pain rule out ACS, PE, and asthma exacerbation ordered cxr fu recs Continue cardiac monitoring and telemetry Trend troponins ECG no stemi Order D-dimer; if elevated, proceed with CTA chest to rule out PE Continue aspirin therapy Nitroglycerin PRN for pain if BP tolerates echo ordered in ed acute Asthma possible exacerbation Initiate bronchodilator therapy (albuterol ipratropium) Start steroids prednisone po Monitor respiratory status closely Oxygen to maintain SpO2 > 94% CHRONIC PROBLEM LIST Asthma FEN / PPx Fluids: IV fluids Electrolytes: Monitor and replace as needed Nutrition: Regular diet DVT Prophylaxis: scd ambulatory GI Prophylaxis: Not indicated unless NSAIDs or steroids cause GI upset Disposition: Admit for further evaluation and management of chest pain, with monitoring for ACS, PE, and asthma exacerbation. Plan discussed with: Patient My Orders Orders - CINTHIA ADRIAN DNP Procedure Category Date Status Time Admit ADMIT 02/06/25 Verified 14:24 Allergies [facility] 02/06/25 Verified 14:24 Code Status CODE 02/06/25 Verified 14:24 Temazepam (Restoril) PHA 02/06/25 Verified 14:30 Ondansetron Hcl PHA 02/06/25 Verified (Zofran) 14:30 Docusate Sodium PHA 02/06/25 Verified Capsule (Colace 14:30 Complete Blood Count LAB 02/07/25 Verified 04:00 Comprehensive LAB 02/07/25 Verified Metabolic Panel 04:00 Condition: Stable [facility] 02/06/25 Verified 14:24 BRP [facility] 02/06/25 Verified 14:24 Morphine Sulfate PHA 02/06/25 Verified Injection 14:30 Sequential [facility] 02/06/25 Verified Compression Device Nitroglycerin [facility] 02/06/25 Verified Sublingual (Ntrostat 14:30 Stat Ekg For Chest [facility] 02/06/25 Verified Pain 14:24 Notify Md Of Changes [facility] 02/06/25 Verified From Base 14:24 Asphalt Engineer For [facility] 02/06/25 Verified 24 Hours 14:24 Emergency Dysrhythmia [facility] 02/06/25 Verified Protocol 14:24 Rhythm Strips Once [facility] 02/06/25 Verified Every Shift 14:24 Oxygen By Nasal RT 02/06/25 Verified Cannula 14:24 D-Dimer LAB 02/06/25 Verified 14:24 Chest Xray 1 View XY 02/06/25 Verified 14:24 B-Type Natriuretic LAB 02/06/25 Verified Peptide 14:24 Prothrombin Time W/ LAB 02/06/25 Verified INR 14:24 Albuterol Medneb PHA 02/06/25 Verified (Ventolin Medneb) 14:30 Ipratropium Medneb PHA 02/06/25 Verified (Atrovent Medneb) 14:30 Cont Med Neb Intial Tx RT 02/06/25 Verified 14:24 Prednisone Tablet PHA 02/06/25 Verified 14:30 Prednisone Tablet PHA 02/07/25 Verified 10:00 Date of Service: Feb 06, 2025 Billing Provider: CINTHIA ADRIAN DNP Common Visit Codes: [id number] INP/OBS CARE (HIGH) CINTHIA ADRIAN DNP Feb 06, 2025 14:28
[2025-02-06] MEDS ORDERED: MORPHINE SULFATE INJ 2 MG/ml SYRG IV PRN (14:30)
[2025-02-06] MEDS ORDERED: NITROGLYCERIN 0.4 MG SL TAB SL PRN (14:30)
[2025-02-06] MEDS ORDERED: TEMAZEPAM 15 MG CAP PO PRN (14:30)
[2025-02-06] MEDS ORDERED: DOCUSATE SOD 100 MG CAP PO PRN (14:30)
[2025-02-06] MEDS ORDERED: ALBUTEROL SULF 2.5 MG/0.5ML(0.5%) NEB SOLN NEB PRN (14:30)
[2025-02-06] MEDS ORDERED: IPRATROPIUM BROM 0.5 MG/2.5ML INH SOL NEB PRN (14:30)
[2025-02-06] MEDS ORDERED: ONDANSETRON HCL 4 MG/2 ML VIAL IV PRN (14:30)
--- NOTE | 2025-02-06 14:52 | DVH ---
CHEST RADIOGRAPH Indication: eval for chest pain Technique: Single frontal view of the chest was obtained COMPARISON: XY CHEST PORTABLE on DOS: 07/29/24 FINDINGS: Lines and Tubes: None Lungs: Clear Pleura: No effusion. No pneumothorax. Cardiomediastinal contours: Unremarkable Bones: Unremarkable IMPRESSION: No acute disease.
[2025-02-06 15:10] LABS: INR 0.94 (0.9-1.15); Prothrombin Time 10.0 sec (9.3-11.8)
[2025-02-06 15:14] VITALS: BP 131/86; PULSE 83; RESP 83; TEMP 97.8; O2SAT 97
[2025-02-06] MEDS: predniSONE 20 MG TAB PO ONE (16:11)
--- NOTE | 2025-02-06 22:49 | DVHSR ---
APPROVED REPORT EXAM: Two-dimensional and M-mode echocardiogram with Doppler and color Doppler. Blood Pressure: 131/97 mmHg INDICATION EF RISK FACTORS Height: 6'5", Weight: 290 DIMENSIONS LVDd5.2 (3.8-5.7cm)LA (2D)4.1 (1.9-4.0cm)Aortic Root3.9 (2.0-3.7cm) LVDs3.6 (2.5-4.0cm)LA (MM) (1.9-4.0cm)Aortic Cusp Exc1.7 (1.5-2.0cm) EF (%) 57.0 (55-70%)Rt. Atrium4.9 (1.9-4.0cm)Asc. Aorta4.2 cm IVSd1.5 (0.7-1.1cm)RV (D)3.9 (1.8-2.4cm) PWd1.3 (0.7-1.1cm) Mitral Valve MitralMitral Stenosis E wave0.51m/sMV Mean GR.mmHg A wave0.55m/sMV Peak GR.mmHg E/A ratio0.92D MVAcm2 DECEL [id number] 1/2 Timems Aortic Valve Aortic ValveAortic Stenosis V10.72m/Sourav Mean GR.7mmHg V21.73m/Sourav Peak GR.12mmHg LVOT Diameter2.7 (1.8-2.4cm)Doppler AVA2.38cm2 AI P 1/2 Tkhe144.62ms Pulmonic Valve V20.73m/s Tricuspid Valve TR Velocity2.10m/s [id number] Conclusion LV EF IS 65% AND IS NORMAL HIGHLY SUSPICIOUS OF BICUSPID AORTIC VALVE MODERATE DEGREE AORTIC VALVE REGURGITATION IS WELL SEEN NORMAL MITRAL,TRICUSPID ,PULMONIC VALVES NORMAL RV FUNCTION NO EFFUSION
[2025-02-07] MEDS ORDERED: predniSONE 20 MG TAB PO SCH (10:00)
--- NOTE | 2025-02-10 07:36 | ECG ---
[facility] Test Date: 2025-02-06 Test Time: 09:52:37 Pat Name: ASHLEY ALANIZ Department: ED Room: [address] [place] [address] A Gender: M Counselor Marriage And Family: marcos : 1995 Requested By: JASMYN RANDOLPH Order Number: [id number] Reading MD: Marek Gimenez Measurements Intervals [place] Rate: 76 P: -13 AK: 200 QRS: 59 QRSD: 100 T: 19 QT: 349 QTc: 393 Interpretive Statements Sinus rhythm Probable inferior infarct, old Borderline ST elevation, anterolateral leads Electronically Signed On 02-10-2025 18:05:20 PDT by Marek Gimenez Please click the below link to view image of tracing.
== END 2025-02-06 16:30 | disposition left against medical advice (07) | DRG 141 ==
LOC: ER 09:37 → OVERFLOW 14:24
PROVIDERS: ADMIT Nurse Practitioner Family; ATTEND Nurse Practitioner Family
DX: J45.901 Unspecified asthma with (acute) exacerbation (principal); I24.9 Acute ischemic heart disease, unspecified; Z53.29 Procedure and treatment not carried out because of patient's decision for other reasons; Z91.013 Allergy to seafood
CPT/HCPCS: 36415; 71045; 80048; 83880; 84484; 85025; 85379; 85610; 93005; 93306; G0378